=== PATIENT | male | born 1995 | race Caucasian/White ===

== ENCOUNTER → 2019-08-17 | Outpatient (REF) | payer OTHER | LOC: M SFHCLERA 10:06 | PROVIDERS: ATTEND Nurse Practitioner Family | DX: R68.89 Other general symptoms and signs (principal) ==

== ENCOUNTER 2024-05-17 15:41 | Emergency (ER) | payer BC, OTHER ==
[~2024-05-17] VITALS: Ht 167.6 cm; Wt 70.9 kg
[2024-05-17 17:46] VITALS: BP 141/95; TEMP 98.8; O2SAT 100
[2024-05-17] MEDS ORDERED: AZIT-12 PO (17:57)
== END 2024-05-17 18:10 | disposition home or self-care (01) ==
LOC: M ED 15:41
DX: J15.7 Pneumonia due to Mycoplasma pneumoniae (principal); F17.290 Nicotine dependence, other tobacco product, uncomplicated; Z88.0 Allergy status to penicillin